=== PATIENT | male | born 1980 | race African-American/Black ===

== ENCOUNTER 2019-12-19 00:30 | Emergency (ER) | payer BC ==
[~2019-12-19] VITALS: Ht 185.4 cm; Wt 99.8 kg
[2019-12-19 00:32] VITALS: BP 146/91
[2019-12-19] MEDS ORDERED: INDOMETHACIN 5050 M1 PO (00:36)
[2019-12-19] MEDS ORDERED: INDOMETHACIN 2525 MG PO (01:08)
[2019-12-19] MEDS ORDERED: SENNA-DOCUSATE1 EAC1 PO (01:10)
[2019-12-19] MEDS ORDERED: PERCOCET 5-3251 EACH PO (01:10)
== END 2019-12-19 01:29 | disposition home or self-care (01) ==
LOC: ER 00:30
DX: M10.072 Idiopathic gout, left ankle and foot (principal); J45.909 Unspecified asthma, uncomplicated; Z79.899 Other long term (current) drug therapy

== ENCOUNTER 2020-03-08 10:17 | Emergency (ER) | payer OTHER ==
[~2020-03-08] VITALS: Ht 185.4 cm; Wt 99.8 kg
[~2020-03-08 10:17] MED LIST: INDOMETHACIN 2525 MG PO; INDOMETHACIN 5050 M1 PO; PERCOCET 5-3251 EACH PO; SENNA-DOCUSATE1 EAC1 PO
[2020-03-08] MEDS ORDERED: TRAMADOL 50 MG50 MG PO (11:45)
[2020-03-08] MEDS ORDERED: KEFLEX500 M1 PO (11:45)
[2020-03-08 11:55] VITALS: BP 132/88
== END 2020-03-08 11:55 | disposition home or self-care (01) ==
LOC: ER 10:17
DX: S61.212A Laceration without foreign body of right middle finger without damage to nail, initial encounter (principal); L03.011 Cellulitis of right finger; J45.909 Unspecified asthma, uncomplicated; M10.9 Gout, unspecified; Z79.899 Other long term (current) drug therapy; W26.8XXA Contact with other sharp object(s), not elsewhere classified, initial encounter; Y93.89 Activity, other specified; Y92.89 Other specified places as the place of occurrence of the external cause; Y99.8 Other external cause status

== ENCOUNTER 2020-03-11 09:09 | Emergency (ER) | payer OTHER ==
[~2020-03-11] VITALS: Ht 185.4 cm; Wt 99.8 kg
[~2020-03-11 09:09] MED LIST changes: +KEFLEX500 M1 PO; +TRAMADOL 50 MG50 MG PO
[2020-03-11 10:02] LABS: URINE BILIRUBIN NEGATIVE (Negative); URINE BLOOD TRACE (Negative); URINE CLARITY CLEAR; URINE COLOR YELLOW; URINE GLUCOSE-RANDOM* NEGATIVE (Negative); URINE KETONES NEGATIVE (Negative); URINE LEUKOCYTES-REFLEX NEGATIVE (Negative); URINE NITRITE-REFLEX NEGATIVE (Negative); URINE PROTEIN (DIPSTICK) NEGATIVE (Negative); URINE UROBILINOGEN 0.2 E.U./dl (0.2-1.0)
[2020-03-11 10:12] LABS: ABSOLUTE NEUTROPHILS 7.3 thou/uL (1.4-8.2); BASOPHILS 0.9 % (0.0-2.0); EOSINOPHILS 2.5 % (0.0-3.0); HEMATOCRIT 42.3 % (42.0-52.0); HEMOGLOBIN 14.9 gm/dL (14.0-18.0); LYMPHOCYTES 17.4 % (24.0-44.0); MCH 31.2 pg (26.0-34.0); MCHC 35.1 g/dL (28.0-37.0); MCV 88.9 fL (80.0-100.0); MONOCYTES 7.8 % (1.0-8.0); PLATELET COUNT 374 thou/uL (150-400); POLYS 71.4 % (36.0-66.0); RBC 4.76 mil/uL (4.50-6.00); RDW 14.5 % (10.5-14.5); WBC 10.2 thou/uL (4.0-11.0)
[2020-03-11 10:22] LABS: CALCIUM 9.3 mg/dL (8.5-10.1); CREATININE 1.4 mg/dL (0.7-1.3)
[2020-03-11 10:28] LABS: DIRECT BILIRUBIN 0.1 mg/dL (<0.1-0.2); TOTAL BILIRUBIN 0.6 mg/dL (0.2-1.0); TOTAL PROTEIN 8.4 g/dL (6.4-8.2)
[2020-03-11] MEDS ORDERED: NORCO 5-325 TA1 EAC2 PO (12:47)
[2020-03-11] MEDS ORDERED: VALIUM5 MG PO (12:47)
[2020-03-11] MEDS ORDERED: MOBIC15 MG PO (12:47)
[2020-03-11 12:59] VITALS: BP 115/76
== END 2020-03-11 13:00 | disposition home or self-care (01) ==
LOC: ER 09:09
PROVIDERS: Emergency Medicine
DX: K59.00 Constipation, unspecified (principal); J45.909 Unspecified asthma, uncomplicated

== ENCOUNTER 2020-05-23 15:46 | Emergency (ER) | payer OTHER ==
[~2020-05-23] VITALS: Ht 188 cm; Wt 99.8 kg
[~2020-05-23 15:46] MED LIST changes: +MOBIC15 MG PO; +NORCO 5-325 TA1 EAC2 PO; +VALIUM5 MG PO
[2020-05-23 15:48] VITALS: BP 158/87
[2020-05-23] MEDS ORDERED: NORCO 10-325 T1 EACH PO (16:05)
[2020-05-23] MEDS ORDERED: PREDNISONE 10 M10 M1 PO (16:05)
[2020-05-23] MEDS ORDERED: INDOMETHACIN 2525 MG PO (16:05)
== END 2020-05-23 16:36 | disposition home or self-care (01) ==
LOC: ER 15:46
DX: M10.9 Gout, unspecified (principal); M79.672 Pain in left foot; J45.909 Unspecified asthma, uncomplicated

== ENCOUNTER 2020-06-15 14:53 | Emergency (ER) | payer OTHER ==
[~2020-06-15] VITALS: Ht 188 cm; Wt 99.8 kg
[~2020-06-15 14:53] MED LIST changes: +NORCO 10-325 T1 EACH PO; +PREDNISONE 10 M10 M1 PO
[2020-06-15] MEDS ORDERED: PREDNISONE 10 M10 M1 PO (15:49)
[2020-06-15] MEDS ORDERED: INDOMETHACIN 2525 MG PO (15:49)
[2020-06-15] MEDS ORDERED: NORCO 5-325 TA1 EAC2 PO (15:49)
[2020-06-15 15:51] VITALS: BP 154/101
== END 2020-06-15 15:51 | disposition home or self-care (01) ==
LOC: ER 14:53
DX: M10.9 Gout, unspecified (principal); J45.909 Unspecified asthma, uncomplicated; Z79.899 Other long term (current) drug therapy

== ENCOUNTER 2020-07-27 13:44 | Emergency (ER) | payer OTHER ==
[~2020-07-27] VITALS: Ht 188 cm; Wt 99.8 kg
[2020-07-27] MEDS ORDERED: INDOMETHACIN 2525 MG PO (15:34)
[2020-07-27] MEDS ORDERED: NORCO 10-325 T1 EACH PO (15:34)
[2020-07-27] MEDS ORDERED: PREDNISONE 10 M10 M1 PO (15:34)
[2020-07-27 16:00] VITALS: BP 122/68
== END 2020-07-27 16:02 | disposition home or self-care (01) ==
LOC: ER 13:44
DX: M10.9 Gout, unspecified (principal); J45.909 Unspecified asthma, uncomplicated; Z79.899 Other long term (current) drug therapy